=== PATIENT | female | born 1970 | race Caucasian/White ===

== ENCOUNTER → 2019-08-02 | Outpatient (CLI) | payer OTHER ==
[2019-08-02 12:48] LABS: BASOPHILS ABSOLUTE AUTO 0.06 K/mm3 (0.00-0.23); BASOPHILS PERCENT AUTO 1 % (0-2); EOSINOPHILS ABSOLUTE AUTO 0.07 K/mm3 (0.00-0.68); EOSINOPHILS PERCENT AUTO 2 % (0-6); IMMATURE GRAN ABSOLUTE AUTO 0.01 K/mm3 (0.00-0.10); IMMATURE GRAN PERCENT AUTO 0 % (0-1); LYMPHOCYTES ABSOLUTE AUTO 1.22 K/mm3 (0.84-5.20); LYMPHOCYTES PERCENT AUTO 27 % (21-46); MONOCYTES ABSOLUTE AUTO 0.37 K/mm3 (0.16-1.47); MONOCYTES PERCENT AUTO 8 % (4-13); Mean Corpuscular HGB 31.7 pg (26.0-34.0); Mean Corpuscular HGB Conc 33.3 g/dL (31.5-36.5); Mean Corpuscular Volume 95 fL (80-100); Mean Platelet Volume 10.7 fL (9.1-12.4); NEUTROPHILS ABSOLUTE AUTO 2.87 K/mm3 (1.96-9.15); NEUTROPHILS PERCENT AUTO 63 % (41-73); Platelet Count 220 K/mm3 (150-400); RDW Coefficient Variation 11.9 % (11.7-14.2); RDW Standard Deviation 41.2 fL (35.1-46.3); Red Blood Cell Count 3.79 M/mm3 (3.80-5.20)
[2019-08-02 13:07] LABS: Alanine Aminotransfer (ALT/SGP 15 U/L (12-78); Albumin, Blood 4.3 g/dL (3.4-5.0); Albumin/Globulin Ratio 1.3 (0.8-1.8); Alk Phos 48 U/L (40-126); Anion Gap 6 mmol/L (6-16); Aspartate Aminotrans (AST/SGOT 17 U/L (12-37); Bilirubin, Total 0.3 mg/dL (0.1-1.0); Blood Urea Nitrogen 13 mg/dL (8-24); Bun/Creatinine Ratio 14.6 (12.0-20.0); CO2, Blood 32 mmol/L (21-32); Chloride, Blood 104 mmol/L (98-108); Creatinine, Blood 0.89 mg/dL (0.40-1.00); Globulin, Blood 3.2 g/dL (2.2-4.0); Glomerular Filtration Rate >60 (60-); Glucose, Blood 91 mg/dL (70-99); Potassium, Blood 4.1 mmol/L (3.5-5.5); Sodium, Blood 142 mmol/L (136-145); Thyroid Stimulating Hormone 1.456 uIU/mL (0.360-4.800); Total Protein, Blood 7.5 g/dL (6.4-8.2)
[2019-08-02 13:08] LABS: Troponin I <0.017 ng/mL (0.000-0.040)
== END | disposition home or self-care (01) ==
LOC: LAB EV 12:42 → LAB SHORT 12:42
PROVIDERS: Physician Assistant
DX: R07.9 Chest pain, unspecified (principal)
CPT/HCPCS: 80053; 83690; 84443; 84484; 85025; 85379

== ENCOUNTER → 2019-09-15 | Outpatient (CLI) | payer OTHER ==
[2019-09-16 23:10] LABS: CHLAMYDIA TRACHOMATIS, NAA Negative (Negative); NEISSERIA GONORRHOEAE, NAA Negative (Negative)
== END | disposition home or self-care (01) ==
LOC: LAB 19:24 → LAB SHORT 19:24
PROVIDERS: Advanced Practice Midwife
DX: Z11.3 Encounter for screening for infections with a predominantly sexual mode of transmission (principal)
CPT/HCPCS: 87491; 87591

== ENCOUNTER → 2020-03-21 | Outpatient (CLI) | payer OTHER ==
[2020-03-23 08:10] LABS: HPV 16 Negative (Negative); HPV 18 Negative (Negative); HPV OTHER HR TYPES Negative (Negative)
== END | disposition home or self-care (01) ==
LOC: LAB 11:30
PROVIDERS: Advanced Practice Midwife
DX: N93.9 Abnormal uterine and vaginal bleeding, unspecified (principal)
CPT/HCPCS: 87624; G0123

== ENCOUNTER 2021-04-27 09:27 | Day surgery (SDC) | payer OTHER ==
[2021-04-25 17:06] LABS: BASOPHILS ABSOLUTE AUTO 0.05 K/mm3 (0.00-0.23); BASOPHILS PERCENT AUTO 1 % (0-2); EOSINOPHILS PERCENT AUTO 2 % (0-6); Hematocrit 37.3 % (33.0-51.0); Hemoglobin 12.4 g/dL (11.5-16.0); IMMATURE GRAN ABSOLUTE AUTO 0.02 K/mm3 (0.00-0.10); IMMATURE GRAN PERCENT AUTO 0 % (0-1); LYMPHOCYTES ABSOLUTE AUTO 1.37 K/mm3 (0.84-5.20); LYMPHOCYTES PERCENT AUTO 25 % (21-46); MONOCYTES ABSOLUTE AUTO 0.44 K/mm3 (0.16-1.47); MONOCYTES PERCENT AUTO 8 % (4-13); Mean Corpuscular HGB 31.2 pg (26.0-34.0); Mean Corpuscular HGB Conc 33.2 g/dL (31.5-36.5); Mean Corpuscular Volume 94 fL (80-100); Mean Platelet Volume 10.4 fL (9.1-12.4); NEUTROPHILS ABSOLUTE AUTO 3.54 K/mm3 (1.96-9.15); NEUTROPHILS PERCENT AUTO 64 % (41-73); Platelet Count 244 K/mm3 (150-400); RDW Standard Deviation 42.1 fL (35.1-46.3); Red Blood Cell Count 3.97 M/mm3 (3.80-5.20); White Blood Cell Count 5.52 K/mm3 (4.00-11.30)
[2021-04-25 18:19] LABS: Anion Gap 6 mmol/L (6-16); Blood Urea Nitrogen 18 mg/dL (8-24); Bun/Creatinine Ratio 25.6 (12.0-20.0); CO2, Blood 30 mmol/L (21-32); Calcium, Blood 9.6 mg/dL (8.5-10.1); Chloride, Blood 103 mmol/L (98-108); Free Thyroxine 0.74 ng/dL (0.70-1.60); Glomerular Filtration Rate >60 (60-); Glucose, Blood 98 mg/dL (70-99); Potassium, Blood 3.9 mmol/L (3.5-5.5); Sodium, Blood 139 mmol/L (136-145)
[~2021-04-27] VITALS: Ht 162.6 cm; Wt 74.5 kg
[2021-04-27] MEDS ORDERED: EUTHYROX50 MCG PO (10:07)
[2021-04-27] MEDS ORDERED: GABA100 PO (10:09)
[2021-04-27] MEDS ORDERED: Naltrexone HCl50 MG PO (10:10)
--- NOTE | 2021-04-27 11:16 | NUR ---
Ambulatory in Day Surgery Surgical site prepped with 2% Chlorhexidine cloth wipe. Michael Paws warming gown applied. History, Chart, Medications and Allergies reviewed before start of procedure.Lungs clear T/O to Auscultation. Patient confirms NPO status and agrees with scheduled surgery. Pre-Op teaching done. Pt verbalizes understanding. Patient States Post-Procedure ride home has been arranged.
--- NOTE | 2021-04-27 19:17 | NUR ---
SHIFT SUMMARY PT A&OX4, VSS/RA, S/P LAP HYSTER, 4 SITES DURABOND DRY/INTACT. DEANNA PO. STAND PIVOT TO BSC; 25 MLS URINE OUT. IVF @ 75 MLS/HR. PAIN MANAGED WITH 5 MG NORCO. REPORT PROVIDED TO CHRIS SINHA.
--- NOTE | 2021-04-28 03:58 | NUR ---
SHIFT SUMMARY A/O X4. POD1 ROBOTIC LAP HYSTER, 4 LAP SITES JERMAINE WITH DERMABOND, C/D/I. IND TO BEDSIDE COMMODE, VOIDING WELL.PAIN MANAGED WITH PO PAIN MEDICATIONS. WILL CONTINUE TO MONITOR AND REPORT TO ONCOMING RN.
--- NOTE | 2021-04-28 09:18 | NUR ---
04/28/21 0918 Charlotte Zapata VERIFICATIONS: EDIT CHART.
--- NOTE | 2021-04-28 10:07 | NUR ---
DISCHARGE SUMMARY PT A&OX4, VSS, VOIDING WELL, DEANNA PO, AMBULATING. DC INS PROVIDED. PT REP UNDERSTANDING THOSE INSTRUCTIONS INCLUDING FU APPT, WHEN TO CALL , OK TO SHOWER, NO LIFTING >10 LBS. IVS DC'D. LEFT FLOOR VIA WC TO GO HOME WITH FRIEND, WITH ALL PERSONAL POSSESSIONS INCLUDING DC PACKET.
== END 2021-04-28 09:54 | disposition home or self-care (01) ==
LOC: ORSCMMR 09:27 → ORD 10:45 → SURS 15:19 → ORSCMMR 04-28 09:54
PROVIDERS: Obstetrics & Gynecology
PROC: 0UT74ZZ Resection of Bilateral Fallopian Tubes, Percutaneous Endoscopic Approach (ICD-10-PCS; principal; 2021-04-27 10:45)
PROC: 8E0W4CZ Robotic Assisted Procedure of Trunk Region, Percutaneous Endoscopic Approach (ICD-10-PCS; principal; 2021-04-27 10:45)
PROC: 0UQ24ZZ Repair Bilateral Ovaries, Percutaneous Endoscopic Approach (ICD-10-PCS; principal; 2021-04-27 10:45)
PROC: 0UT94ZZ Resection of Uterus, Percutaneous Endoscopic Approach (ICD-10-PCS; principal; 2021-04-27 10:45)
DX: N80.0 Endometriosis of uterus (principal); D25.9 Leiomyoma of uterus, unspecified; N85.4 Malposition of uterus; N92.0 Excessive and frequent menstruation with regular cycle; N94.10 Unspecified dyspareunia; Z87.891 Personal history of nicotine dependence; E03.9 Hypothyroidism, unspecified; Z79.899 Other long term (current) drug therapy
CPT/HCPCS: 58571; 58679; S2900; 36415; 80048; 84439; 84443; 84703; 85025; 86850; 86900; 86901; 88307; A9270; J0690; J1100; J1885; J2250; J2405; J2704; J2710; J2765; J3010; J7120

== ENCOUNTER 2022-01-05 07:18 | Day surgery (SDC) | payer BC, OTHER ==
[~2022-01-05] VITALS: Ht 162.6 cm; Wt 66.9 kg
[~2022-01-05 07:18] MED LIST: Adipex-P37.5 MG PO; EUTHYROX50 MCG PO; GABA100 PO; LATISSE5 ML; Naltrexone HCl50 MG PO
== END 2022-01-05 09:15 | disposition home or self-care (01) ==
LOC: ORSCSDS 07:18
PROVIDERS: Surgery
PROC: 0DJD8ZZ Inspection of Lower Intestinal Tract, Via Natural or Artificial Opening Endoscopic (ICD-10-PCS; principal; 2022-01-05 08:30)
DX: Z12.11 Encounter for screening for malignant neoplasm of colon (principal)
CPT/HCPCS: J2704; J7120

== ENCOUNTER 2022-06-01 08:24 | Day surgery (SDC) | payer BC, OTHER ==
[~2022-06-01] VITALS: Ht 162.6 cm; Wt 64.9 kg
--- NOTE | 2022-06-01 10:01 | NUR ---
06/01/22 1001 Melvin Hilario ROPIVACAINE 0.5% 30 MLS MIXED & VERIFIED W/ EPI 0.15 ML (1MG/ML) TO MAKE ROPIVACAINE 0.5% 1:200,000 FOR INJECTION AT OPSITE BY DR SCHAFFER. 30 MLS INJECTED.
--- NOTE | 2022-06-01 13:05 | NUR ---
06/01/22 1305 Moncho Pérez PT REPORTED 4/10 PAIN PRIOR TO DISCHARGE. SHE DESCRIBED PAIN TOLERABLE AND SAID SHE WAS COMFORTABLE GOING HOME AT THIS LEVEL. SHE DID EXPRESS FEAR ABOUT WHETHER SEVERE PAIN WOULD RETURN. PT WAS INSTRUCTED TO FILL NORCO PERSCRIPTION IMMEDIATELY AND TAKE DIRECTED. SHE WAS ALSO INSTRUCTED TO CALL DR. SCHAFFER'S OFFICE IMMEDIATELY FOR PAIN THAT COULD NOT BE CONTROLLED WITH HER PERSCRIPTION MEDICATION.
== END 2022-06-01 12:45 | disposition home or self-care (01) ==
LOC: ORSCSDS 08:24
PROVIDERS: Podiatrist Foot & Ankle Surgery
PROC: 0Q8P0ZZ Division of Left Metatarsal, Open Approach (ICD-10-PCS; principal; 2022-06-01 09:15)
PROC: 0SGJ04Z Fusion of Left Tarsal Joint with Internal Fixation Device, Open Approach (ICD-10-PCS; principal; 2022-06-01 09:15)
DX: M21.612 Bunion of left foot (principal); M79.672 Pain in left foot; M77.42 Metatarsalgia, left foot; Z87.891 Personal history of nicotine dependence; E03.9 Hypothyroidism, unspecified; Z79.899 Other long term (current) drug therapy
CPT/HCPCS: A9270; C1713; C1769; J0171; J0690; J1100; J1885; J2250; J2405; J2704; J2795; J3010; J7120

== ENCOUNTER 2023-04-05 08:48 | Day surgery (SDC) | payer BC, OTHER ==
[~2023-04-05] VITALS: Ht 162.6 cm; Wt 70.6 kg
[~2023-04-05 08:48] MED LIST changes: +LEVOTHYROXINE50 MC9 PO
[2023-04-05] MEDS ORDERED: Phentermine HCl30 MG (09:31)
--- NOTE | 2023-04-05 10:52 | NUR ---
04/05/23 1052 Luz Sanchez 40ML OF ROPIVACAINE 0.5% MIXED AND VERIFIED WITH 0.2ML OF EPI (1MG/ML) TO MAKE ROPIVACAINE 0.5% WITH EPI 1:200,000 FOR INJECTION AT THE OPSITE BY DR SCHAFFER.
--- NOTE | 2023-04-05 12:34 | NUR ---
04/05/23 1234 Jb Matt PT PRESENTED TO PAR UNIT WITH COMPLINT OF 10/10 RIGHT FOOT PAIN. CONSULTED W/ DR BATES. PT PROVIDED KETOROLAC 30MG IV AT 1225 ALONG WITH DILAUDID 1MG IV. SEE ANESTHESIA RECORD FOR FURTHER INFO
[2023-04-05 12:36] VITALS: BP 139/90
== END 2023-04-05 14:15 | disposition home or self-care (01) ==
LOC: ORSCSDS 08:48
PROVIDERS: Podiatrist Foot & Ankle Surgery
PROC: 0QSQ04Z Reposition Right Toe Phalanx with Internal Fixation Device, Open Approach (ICD-10-PCS; principal; 2023-04-05 10:00)
PROC: 0QSN04Z Reposition Right Metatarsal with Internal Fixation Device, Open Approach (ICD-10-PCS; principal; 2023-04-05 10:00)
PROC: 0SGK04Z Fusion of Right Tarsometatarsal Joint with Internal Fixation Device, Open Approach (ICD-10-PCS; principal; 2023-04-05 10:00)
DX: M21.611 Bunion of right foot (principal); E05.90 Thyrotoxicosis, unspecified without thyrotoxic crisis or storm; Z79.899 Other long term (current) drug therapy; Z87.891 Personal history of nicotine dependence
CPT/HCPCS: A9270; C1713; J0171; J0690; J1100; J1170; J1885; J2250; J2405; J2704; J2795; J3010; J7120